=== PATIENT | female | born 1995 | race Caucasian/White ===

== ENCOUNTER 2018-03-27 19:59 | Outpatient (CLI) | payer OTHER ==
[2018-03-27 20:39] LABS: APPEARANCE,URINE CLEAR; BILIRUBIN,URINE NEGATIVE (NEGATIVE); COLOR,URINE STRAW; GLUCOSE, URINE NEGATIVE (NEGATIVE); KETONES,URINE NEGATIVE (NEGATIVE); LEUKOCYTE ESTERASE,URINE NEGATIVE (NEGATIVE); NITRITE,URINE NEGATIVE (NEGATIVE); PROTEIN,URINE NEGATIVE (NEGATIVE); URINE SPECIFIC GRAVITY 1.006; UROBILINOGEN,URINE NEGATIVE mg/dL (<2.0)
[2018-03-27 20:54] LABS: URINE AMPHETAMINES SCREEN NEGATIVE; URINE BARBITURATES SCREEN NEGATIVE; URINE BENZODIAZEPINES SCREEN NEGATIVE; URINE COCAINE SCREEN NEGATIVE; URINE MARIJUANA (THC) SCREEN NEGATIVE; URINE METHADONE SCREEN NEGATIVE; URINE PHENCYCLIDINE SCREEN NEGATIVE
== END 2018-03-27 21:07 | disposition home or self-care (01) ==
LOC: LC 19:59
PROVIDERS: ATTEND Obstetrics & Gynecology Gynecology
PROC: 4A1HXCZ Monitoring of Products of Conception, Cardiac Rate, External Approach (ICD-10-PCS; principal; 2018-03-27)
DX: O47.1 False labor at or after 37 completed weeks of gestation (principal); Z3A.38 38 weeks gestation of pregnancy
CPT/HCPCS: 59025; 80307; 81005; 84112

== ENCOUNTER 2018-04-01 08:02 | Inpatient (IN) | payer OTHER ==
--- NOTE | 2018-04-01 08:15 | Non Stress Test Report ---
Non Stress Test Datetime Report Generated by CPN: 04/01/2018 08:15 DEMOGRAPHIC Test Number: 1 EGA NST: 38.1 INDICATION Indication for Study: Ordered by Provider MONITORING Monitor Explained: Monitor Explained; Test Explained; Patient Verbalized Understanding Time on Monitor: 03/27/2018 20:17 Time off Monitor: 03/27/2018 20:56 NST Duration: 39 NST INTERVENTIONS NST Interventions: PO Hydration Physician Notified NST: Dr. Mccoy BABY A: [id number] BABY A Movement : Present Contraction Frequency : 3-7 FHR Baseline : 140 Accelerations : 15X15 Decelerations : None Variability : Moderate 6-25bpm NST Review: Meets Criteria for Reactive NST NST Review and Verified By : CHERYLE Polanco NST Results: Reactive NST REPORT Report Trigger: Send Report
[2018-04-01 08:41] LABS: APPEARANCE,URINE CLEAR; BILIRUBIN,URINE NEGATIVE (NEGATIVE); COLOR,URINE YELLOW; GLUCOSE, URINE NEGATIVE (NEGATIVE); KETONES,URINE NEGATIVE (NEGATIVE); LEUKOCYTE ESTERASE,URINE NEGATIVE (NEGATIVE); NITRITE,URINE NEGATIVE (NEGATIVE); PROTEIN,URINE NEGATIVE (NEGATIVE); URINE SPECIFIC GRAVITY 1.008; UROBILINOGEN,URINE NEGATIVE mg/dL (<2.0)
--- NOTE | 2018-04-01 11:31 | Admission Physical ---
Datetime Report Generated by CPN: 04/01/2018 11:30 CURRENT ADMISSION Chief Complaint: Uterine Contractions Admit Impression : Term, Intrauterine Admit Impression- Other: GBS NEGATIVE Admit Plan: Admit to Unit; Initiate Labor Protocol ALLERGIES Medication Allergies: Yes Medication Allergies: Penicillins (03/27/2018) Latex: No Latex Allergies Food Allergies: NKA Environmental Allergies: NKA OBSTETRICAL HISTORY EDC: 04/09/2018 00:00 : 1 Para: 0 Gestational Diabetes: No Rh Sensitization: No Incompetent Cervix: No DARIA: No Infertility: No ART Treatment: No Uterine Anomaly: No IUGR: No Hx Previous C/S: No Macrosomia: No Hx Loss/Stillborn: No PIH: No Hx : No Placenta Previa/Abruption: No Depression/PP Depression: No PTL/PROM: No Post Hemorrhage: No Current Procedures: Ultrasound; NST Obstetrical History Comments: G1- current SEE RECORDS Alcohol: No Marijuana : No Cocaine: No Other Illicit Drugs: No Cigarettes: Never Smoker. 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 Heart Disease: No Hosp/Surgery: Yes Autoimmune Disorder: No Anesthetic Complications: No Kidney Disease: No Abnormal Pap Smear: No Neuro/Epilepsy: No Psychiatric Disorders: No Other Medical Diseases: No Hepatitis/Liver Disease: No Significant Family History: No Varicosities/Phlebitis: No Trauma/Violence : No Thyroid Dysfunction: No Medical History Comments: wisdom teeth removal INFECTIOUS HISTORY Gonorrhea: No Genital Herpes: No Chlamydia: No Tuberculosis: No Syphilis: No Hepatitis: No HIV/AIDS Exposure: No Rash or Viral Illness: No HPV: No PHYSICAL EXAM General: Normal HEENT: Normal Neurologic: Normal Thyroid: Normal Heart: Normal Lungs: Normal Breast: Normal Back: Normal Abdomen: Normal Genitourinary Exam: Normal Extremities: Normal DTRs: Normal Pelvic Type: Adequate VAGINAL EXAM Dilatation: 5 Effacement: 70 Station: -1 Contraction Comments: IRREGULAR MEMBRANES Pooling: Negative Membranes: Intact FETUS A EGA: 38.6 Monitoring: External US FHR- Baseline: 140 Variability: Moderate 6-25bpm Accelerations: 15X15 Decelerations: None Estimated Weight (gm): 3200 Presentation: Vertex PLANS FOR LABOR AND DELIVERY Labor and Delivery: None Pain Management: Epidural Feeding Preference: Breast Benefit of Breast Feed Discussed: Yes Circumcision: N/A INFORMED CONSENT Signature: Electronically signed by MD Jarret AlvaresCHOCT[facility] [place]) on 04/01/2018 at 11:29 with User ID: [email or web address]
[2018-04-01] MEDS: RINGERS SOLUTION,LACTATED 1,000 ML IV PRN ×2 (11:55→16:31)
[2018-04-01] MEDS ORDERED: RINGERS SOLUTION,LACTATED 1,000 ML IV ONE (12:30)
[2018-04-01 12:34] LABS: ABSOLUTE LYMPHOCYTES (AUTO) 1.8 10^3/uL (0.5-4.7); ABSOLUTE MONOCYTES (AUTO) 0.6 10^3/uL (0.1-1.4); ABSOLUTE NEUT (AUTO) 6.9 10^3/uL (1.7-8.2); BASOPHILS % (AUTO) 0.3 % (0-2); EOSINOPHILS % (AUTO) 0.2 % (0-6); HEMATOCRIT 38.9 % (36.0-47.0); HEMOGLOBIN 13.3 g/dL (12.0-15.5); LYMPHOCYTES % (AUTO) 18.9 % (13-45); MEAN CORPUSCULAR HEMOGLOBIN 29.3 pg (27.0-33.4); MEAN CORPUSCULAR HGB CONC 34.2 g/dL (32.0-36.0); MEAN CORPUSCULAR VOLUME 86 fl (80-97); MONOCYTES % (AUTO) 6.7 % (3-13); PLATELET COUNT 210 10^3/uL (150-450); RED BLOOD COUNT 4.53 10^6/uL (3.72-5.28); RED CELL DISTRIBUTION WIDTH 13.7 % (11.5-14.0); SEGMENTED NEUTROPHILS % (AUTO) 73.9 % (42-78); TOTAL CELLS COUNTED % (AUTO) 100 %; WHITE BLOOD COUNT 9.3 10^3/uL (4.0-10.5)
[2018-04-01] MEDS ORDERED: FENTANYL CITRATE INJ/PF 100 MCG/2 ML AMPUL ONE (12:36)
[2018-04-01] MEDS ORDERED: PHENYLEPHRINE HCL INJ/PF 10 MG/1 ML SDV ONE (12:36)
[2018-04-01] MEDS ORDERED: EPHEDRINE SULFATE INJ 50 MG/1 ML AMPULE ONE (12:36)
[2018-04-01] MEDS ORDERED: BUPIVACAINE HCL 0.5 % INJ/PF 30 ML SDV ONE (12:37)
[2018-04-01] MEDS ORDERED: FENTANYL/BUPIVACAINE/NS/PF 200 MCG/100 ML RTUINJ EPI ONE (12:37)
[2018-04-01 12:49] LABS: URINE AMPHETAMINES SCREEN NEGATIVE; URINE BARBITURATES SCREEN NEGATIVE; URINE BENZODIAZEPINES SCREEN NEGATIVE; URINE COCAINE SCREEN NEGATIVE; URINE MARIJUANA (THC) SCREEN NEGATIVE; URINE METHADONE SCREEN NEGATIVE; URINE PHENCYCLIDINE SCREEN NEGATIVE
[2018-04-01] MEDS ORDERED: MISOPROSTOL 0.2 MG TABLET ONE (15:35)
[2018-04-01] MEDS ORDERED: LIDOCAINE 1% INJ-PF (10 MG/ML) 30 ML SDV ONE (15:36)
[2018-04-01] MEDS ORDERED: OXYTOCIN/NORMAL SALINE 20 UNIT/1,000 ML RTUINJ ONE (15:36)
[2018-04-01] MEDS ORDERED: METHYLERGONOVINE MALEATE INJ/PF 0.2 MG/1 ML AMPULE ONE (17:18)
[2018-04-01] MEDS ORDERED: MORPHINE SULFATE 10 MG/ML INJ ONE (17:25)
[2018-04-01 17:42] LABS: ARTERIAL BLOOD BASE EXCESS -1.9 mmol/L; ARTERIAL BLOOD H2CO3 1.46 mmol/L (1.05-1.35); ARTERIAL BLOOD HCO3 24.6 mmol/L (20-26); ARTERIAL BLOOD PCO2 48.5 mmHg (35-45); ARTERIAL BLOOD PH 7.32 (7.35-7.45); ARTERIAL BLOOD TOTAL CO2 26.1 mmol/L (21-25)
[2018-04-01 17:43] LABS: ARTERIAL BLOOD FIO2 CORD BLOOD; ARTERIAL BLOOD PO2 19.4 mmHg (80-100)
--- NOTE | 2018-04-01 17:53 | PDOC DELIVERY SUMMARY ---
Delivery Summary - Maternal Hx : I Hx Para: 0 Hx # Term Pregnancies: 1 Hx # Pregnancies: 0 Hx Total # of Abortions (Sponateous & Elective): 0 Number of Living Children: 0 SOUTH: 04/09/18 Gestational Age: 38.6 Risk Factors/Complications Other:: none Ruptured Membranes: AROM - clear fluid Fluids: Clear - Delivery Labor: Augmentation Presentation: Vertex Heart Rate Monitoring: Externally Uterine Contraction Monitoring: External Pattern: Variable Decels Support Person Present: Yes Location: LD Placenta: Within Normal Limits Placenta Description: normal appearing Number of Vessels (Cord): 3 Nuchal Cord: No Delivery of Placenta Date: 04/01/18 Estimated Blood Loss: 500 Delivery Quantitative Blood Loss (QBL): 500 Delivery QBL Comment: right sulcal tear with partial third degree laceration. - Medications Type of Anesthesia:: Epidural - Delivery Personnel MD: BANG NEELY
[2018-04-01] MEDS ORDERED: MEASLES,MUMPS&RUBELLA VACC/PF 0.5 ML VIAL SUBCUT PRN (17:54)
[2018-04-01] MEDS ORDERED: ZOLPIDEM TARTRATE 5 MG TABLET PO PRN (17:54)
[2018-04-01] MEDS ORDERED: BENZOCAINE/MENTHOL AEROSOL SPRAY 56 ML TOP PRN (17:54)
[2018-04-01] MEDS ORDERED: ACETAMINOPHEN WITH CODEINE #3 TABLET PO PRN ×2 (17:54)
[2018-04-01] MEDS ORDERED: OXYTOCIN/NORMAL SALINE 20 UNIT/1,000 ML RTUINJ IV PRN (17:54)
[2018-04-01] MEDS ORDERED: DIBUCAINE 1% OINTMENT 28 GM TP PRN (17:54)
[2018-04-01] MEDS ORDERED: DIPH/PERTUSS(ACELL)/TETANUS VAC/PF 0.5 ML SYR (>=10YO) IM PRN (17:54)
[2018-04-01] MEDS ORDERED: IBUPROFEN 800 MG TABLET ONE (18:07)
--- NOTE | 2018-04-01 19:35 | Delivery Summary ---
Del Sum A-C Datetime Report Generated by CPN: 04/01/2018 19:35 DELIVERY PERSONNEL DELIVERY PERSONNEL: [id number] Delivery Doctor:: Delfina Lobo MD Labor and Delivery Nurse:: Farzana Kay RNmanager multimedia Nurse:: Katerine Jaramillo RN Risk Specialist/UPHOLSTERER OUTSIDE: Pari Berrykaterine ST Risk Specialist/UPHOLSTERER OUTSIDE: Elizabeth Weber, PLUMBER'S HELPER MATERNAL INFORMATION Delivery Anesthesia: Epidural Medications After Delivery: Pitocin Drip 20 Units/1000ml NSS; Methergine 0.2mg IM; Cytotec 800mcg Per Rectum/Vagina Maternal Complications: None LABOR SUMMARY EDC: 04/09/2018 00:00 No. Babies in Womb: 1 Attempted: No Labor Anesthesia: Epidural LABOR INFORMATION Reason for Induction: Not Applicable Onset of Labor: 04/01/2018 04:00 Complete Dilatation: 04/01/2018 16:47 Oxytocin: N/A Group B Beta Strep: negative Steroids Given: None Reason Steroids Not Administered: Not Applicable MEMBRANES Membranes Rupture Method: Artificial Rupture of Membranes: 04/01/2018 14:34 Length of Rupture (hr): 2.63 Amniotic Fluid Color: Clear Amniotic Fluid Amount: Small Amniotic Fluid Odor: Normal STAGES OF LABOR Stage 1 hr: 12 Stage 1 min: 47 Stage 2 hr: 0 Stage 2 min: 25 Stage 3 hr: 0 Stage 3 min: 2 Total Time in Labor hr: 13 Total Time in Labor min: 14 VAGINAL DELIVERY Episiotomy: None Laceration #1: Sulcus Laceration Extension #1: Third Degree, IIIa (Less than 50 percent ext anal sphincter thickness torn) Laceration Repair: Yes Sponge Count Correct: Yes Sharps Count Correct: Yes CSECTION DELIVERY Primary Indication: N/A Secondary Indication: N/A CSection Urgency: Emergency CSection Incidence: N/A Labor: N/A Elective: N/A CSection Incision: N/A BABY A INFORMATION Infant Delivery Date/Time: 04/01/2018 17:12 Method of Delivery: Vaginal Born in Route : No : N/A Forceps: N/A Vacuum Extraction: N/A Shoulder Dystocia : No PRESENTATION/POSITION BABY A Presentation: Cephalic Cephalic Presentation: Vertex Vertex Position: Left Occipital Anterior Breech Presentation: N/A PLACENTA INFORMATION BABY A Placenta Delivery Time : 04/01/2018 17:14 Placenta Method of Delivery: Spontaneous Placenta Status: Delivered SCORES BABY A Heart Rate 1 min: >100 bpm Resp Effort 1 min: Good Cry Reflex Irritability 1 min: Cough or Sneeze or Pulls Away Muscle Tone 1 min: Active Motion Color 1 min: Blue/Pale Resuscitation Effort 1 min: N/A SCORE 1 MIN: 8 Heart Rate 5 min: >100 bpm Resp Effort 5 min: Good Cry Reflex Irritability 5 min: Cough or Sneeze or Pulls Away Muscle Tone 5 min: Active Motion Color 5 min: Body [place], Extremities Blue Resuscitation Effort 5 min: N/A SCORE 5 MIN: 9 INFORMATION BABY A Gestational Age at Delivery: 38.6 Gestational Status: Early Term- 37- 38.6 Weeks Infant Outcome : Liveborn Condition : Stable Infant Sex: Female IDENTIFICATION BABY A Verification Date/Time: 04/01/2018 17:12 ID Band Number: [id number] Mother's Name Verified: Yes RN Verifying Infant: German Kay, RN/ A Misyak, RN WEIGHT/LENGTH BABY A Birthweight (gm): 3460 Weight (lb): 7 Infant Weight (oz): 10 Length (in): 20.00 Length (cm): 50.80 CORD INFORMATION BABY A No. Cord Vessels: 3 Nuchal Cord : N/A Cord Blood Taken: Yes-For Storage (Mom's Blood type +) Infant Suction: None ASSESSMENT BABY A Infant Complications: None Physical Findings at Delivery: Within Normal Limits Respirations: Grunting Skin to Skin: Yes Freight Service Inspector/ALS Called : No Care By: German Kay RN Transferred To: Remains with Mother BABY B INFORMATION : N/A
--- NOTE | 2018-04-01 19:53 | Warning Signs in Babies ---
VOD Warning Signs Datetime Report Generated by [facility]: 04/01/2018 19:53 VOD#608 -Warning Signs in Babies: Needs to be viewed. (03/27/2018 20:04:Leona Wiggins RN)
[2018-04-02] MEDS: IBUPROFEN 800 MG TABLET PO SCH ×4 (02:21→21:40)
[2018-04-02 09:08] LABS: HEMATOCRIT 35.7 % (36.0-47.0); HEMOGLOBIN 12.2 g/dL (12.0-15.5); MEAN CORPUSCULAR HEMOGLOBIN 29.3 pg (27.0-33.4); MEAN CORPUSCULAR HGB CONC 34.1 g/dL (32.0-36.0); MEAN CORPUSCULAR VOLUME 86 fl (80-97); PLATELET COUNT 180 10^3/uL (150-450); RED BLOOD COUNT 4.15 10^6/uL (3.72-5.28); RED CELL DISTRIBUTION WIDTH 13.7 % (11.5-14.0); WHITE BLOOD COUNT 10.5 10^3/uL (4.0-10.5)
[2018-04-02] MEDS ORDERED: DHA PO SCH (10:00)
[2018-04-02] MEDS ORDERED: IRON PO SCH (10:00)
[2018-04-02] MEDS ORDERED: FOLIC AC PO SCH (10:00)
[2018-04-02] MEDS ORDERED: PRENATAL PO SCH (10:00)
[2018-04-02] MEDS: PRENATAL VITAMIN W DHA CAPSULE PO SCH (10:13)
[2018-04-02] MEDS: SENNOSIDES/DOCUSATE 8.6-50 MG 1 EACH TABLET PO SCH (10:13)
[2018-04-02] MEDS: FERROUS SULFATE 325 MG TABLET PO SCH ×2 (10:13→17:35)
[2018-04-02] MEDS: DOCUSATE SODIUM 100 MG CAPSULE PO SCH ×2 (10:14→17:35)
--- NOTE | 2018-04-02 11:32 | PDOC PROGRESS REPORT ---
Subjective-OB Progress Note for:: 04/02/18 Subjective: reports bleeding slowing, pain controlled with current meds. denies needs Physical Exam (OB) Vital Signs: Temp Pulse Resp BP Pulse Ox 97.8 F 70 14 102/67 100 04/02/18 08:04 04/02/18 08:04 04/02/18 08:04 04/02/18 08:04 04/02/18 08:04 Intake & Output 04/01/18 04/02/18 04/03/18 06:59 06:59 06:59 Intake Total 3000 240 Balance 3000 240 Weight 76.4 kg - Abdomen Description: Soft Hernia Present: No Fundal Description: Firm, Midline Fundal Height: 1/u - 2/u - Abdominal Distension: No distension Tenderness: Nontender - Extremities Lower extremities: Mendoza's sign - neg Calf: Normal, Nontender Objective-Diagnostic Laboratory: 04/02/18 08:41 04/01/18 04/01/18 04/01/18 11:54 11:54 17:13 WBC 9.3 RBC 4.53 Hgb 13.3 Hct 38.9 MCV 86 MCH 29.3 MCHC 34.2 RDW 13.7 Plt Count 210 Seg Neutrophils % 73.9 Lymphocytes % 18.9 Monocytes % 6.7 Eosinophils % 0.2 Basophils % 0.3 Absolute Neutrophils 6.9 Absolute Lymphocytes 1.8 Absolute Monocytes 0.6 Absolute Eosinophils 0.0 Absolute Basophils 0.0 Carbonic Acid 1.46 H HCO3/H2CO3 Ratio 16:1 ABG pH 7.32 L ABG pCO2 48.5 H ABG pO2 19.4 L* ABG HCO3 24.6 ABG O2 Saturation 27.0 L ABG Base Excess -1.9 FiO2 CORD BLOOD Blood Type A POSITIVE Antibody Screen NEGATIVE 04/02/18 08:41 WBC 10.5 RBC 4.15 Hgb 12.2 Hct 35.7 L MCV 86 MCH 29.3 MCHC 34.1 RDW 13.7 Plt Count 180 Seg Neutrophils % Lymphocytes % Monocytes % Eosinophils % Basophils % Absolute Neutrophils Absolute Lymphocytes Absolute Monocytes Absolute Eosinophils Absolute Basophils Carbonic Acid HCO3/H2CO3 Ratio ABG pH ABG pCO2 ABG pO2 ABG HCO3 ABG O2 Saturation ABG Base Excess FiO2 Blood Type Antibody Screen Assessment and Plan(PN) - Assessment and Plan (1) Normal vaginal delivery Is this a current diagnosis for this admission?: Yes (2) hemorrhage Is this a current diagnosis for this admission?: Yes - Time Spent with Patient Time with patient: Less than 15 minutes - Disposition Anticipated Discharge: Home Within: within 24 hours
[2018-04-03] MEDS: IBUPROFEN 800 MG TABLET PO SCH (06:00)
[2018-04-03] MEDS: DOCUSATE SODIUM 100 MG CAPSULE PO SCH ×2 (08:38→09:25)
[2018-04-03] MEDS: FERROUS SULFATE 325 MG TABLET PO SCH ×2 (08:39→09:25)
[2018-04-03 08:41] VITALS: BP 113/66
[2018-04-03] MEDS: PRENATAL VITAMIN W DHA CAPSULE PO SCH (09:25)
[2018-04-03] MEDS: SENNOSIDES/DOCUSATE 8.6-50 MG 1 EACH TABLET PO SCH (09:25)
--- NOTE | 2018-04-03 11:02 | PDOC PROGRESS REPORT ---
Subjective-OB Progress Note for:: 04/03/18 Subjective: PP Day#2 doing well, no complaints, A+ Rubella +, Physical Exam (OB) Vital Signs: Temp Pulse Resp BP Pulse Ox 97.5 F 62 16 113/66 97 04/03/18 08:52 04/03/18 08:52 04/03/18 08:52 04/03/18 07:52 04/03/18 08:52 Intake & Output 04/02/18 04/03/18 04/04/18 06:59 06:59 06:59 Intake Total 3000 240 350 Output Total 2 Balance 3000 238 350 Weight 76.4 kg - General General Appearance: Appears well, Alert In distress: None - PIH/Pre-Eclampsia DTR's: 1 + Clonus: Negative Headache: Absent Epigastric Pain: No Visual Changes: No - Lochia Lochia Amount: Scant < 10 ml Lochia Color: Rubra/Red - Abdomen Description: Soft, Flat Hernia Present: No Fundal Description: Firm, Midline Fundal Height: u/u - u/2 - Respiratory Respiratory Status: No respiratory distress - Genitourinary Genitourinary Note: voiding - Extremities Upper extremity: Normal inspection Lower extremities: Edema - trace - Neurological Cognition: Normal Orientation: AAOx4 - Psychological Associated symptoms: Normal affect, Normal mood Objective-Diagnostic Laboratory: 04/02/18 08:41 Assessment and Plan(PN) - Assessment and Plan (1) Third degree laceration of perineum during delivery, Is this a current diagnosis for this admission?: Yes (2) Normal vaginal delivery Is this a current diagnosis for this admission?: Yes (3) hemorrhage Is this a current diagnosis for this admission?: Yes - Time Spent with Patient Time with patient: Less than 15 minutes Smoking Education Provided: Over 3 minutes - Disposition Anticipated Discharge: Home Disposition: stable condition
--- NOTE | 2018-04-03 11:08 | PDOC DISCHARGE SUMMARY ---
Final Diagnosis Discharge Date: 04/03/18 - Final Diagnosis (1) Third degree laceration of perineum during delivery, Is this a current diagnosis for this admission?: Yes (2) Normal vaginal delivery Is this a current diagnosis for this admission?: Yes (3) hemorrhage Is this a current diagnosis for this admission?: Yes Discharge Data - Discharge Medication Prescriptions: Acetaminophen with Codeine [Tylenol #3 Tablet] 1 each PO Q6HP PRN #20 tablet PRN Reason: Pain Scale Of 4 Ibuprofen [Motrin 800 mg Tablet] 800 mg PO Q8 PRN #48 tablet PRN Reason: Pain Scale Of 2 Home Medications: 105/Iron/Folic AC/Dha [Prena1 True Combo Pack] 1 each PO DAILY Acetaminophen with Codeine [Tylenol #3 Tablet] 1 each PO Q6HP PRN #20 tablet Docusate Sodium [Colace 100 mg Capsule] 100 mg PO BID capsule 04/03/18 Ibuprofen [Motrin 800 mg Tablet] 800 mg PO Q8 PRN #48 tablet 04/03/18 Reason(s) for Admission: Onset of Labor Procedures: NST Intrapartum Procedure(s): Spontaneous Vaginal Delivery Complication(s): Laceration-Perineal Laceration-Degree: 3rd - Diagnosis Test Laboratory: Temp Pulse Resp BP Pulse Ox 97.5 F 62 16 113/66 97 04/03/18 08:52 04/03/18 08:52 04/03/18 08:52 04/03/18 07:52 04/03/18 08:52 04/01/18 04/01/18 04/02/18 08:02 11:54 08:41 RBC 4.53 4.15 Hgb 13.3 12.2 Hct 38.9 35.7 L Urine Opiates Screen NEGATIVE - Discharge information/Instructions Discharge Activity: Activity As Tolerated, No Lifting Over 10 Pounds, Pelvic Rest, Walk Frequently Discharge Diet: As Tolerated, Regular Disposition: HOME, SELF-CARE Follow up with: [facility] in: 3, Weeks
== END 2018-04-03 13:14 | disposition home or self-care (01) | DRG 774 ==
LOC: LC 08:02 → LR 11:13 → 2S 20:40
PROVIDERS: ADMIT Obstetrics & Gynecology; ATTEND Obstetrics & Gynecology
PROC: 10E0XZZ Delivery of Products of Conception, External Approach (ICD-10-PCS; principal; 2018-04-01)
PROC: 0DQR0ZZ Repair Anal Sphincter, Open Approach (ICD-10-PCS; 2018-04-01)
PROC: 4A1HXCZ Monitoring of Products of Conception, Cardiac Rate, External Approach (ICD-10-PCS; 2018-04-01)
DX: O70.21 Third degree perineal laceration during delivery, IIIa (principal); O72.1 Other immediate postpartum hemorrhage; Z37.0 Single live birth; Z88.0 Allergy status to penicillin; Z3A.38 38 weeks gestation of pregnancy
CPT/HCPCS: 36415; 80307; 81005; 82803; 85025; 85027; 86592; 86850; 86900; 86901; 94760; J2210; J2270; J2370; J2590; J3010; J3490